=== PATIENT | male | born 1985 | race Caucasian/White ===

== ENCOUNTER 2018-01-05 13:24 | Emergency (ER) | payer BC ==
[~2018-01-05] VITALS: Ht 185.4 cm; Wt 125.5 kg
[~2018-01-05 13:24] MED LIST: FLEXERIL 1010 MG/TAB PO; FLEXERIL10 MG PO; LEVAQUIN 5500 MG/TA1 PO; LIPITOR20 MG PO; LORTAB 5/500 501 TAB PO; MOTRIN 200200 MG/TAB PO; MOTRIN 800800 MG/TAB PO; NO HOME MEDICATIONS; NORCO 325 MG-51 TAB PO; PERCOCET 5/321 UDTAB PO; PHENERGAN 25 TA25 MG PO; PLAVIX 75MG TAB75 MG PO; PREDNISONE 20MG20 MG PEG; PREDNISONE20 MG PO; TAMIFLU 75MG75 MG PO
[2018-01-05 13:26] VITALS: TEMP 99.6
[2018-01-05 13:49] LABS: HEMATOCRIT 48.1 % (42.0-52.0); HEMOGLOBIN 16.8 g/dl (13.5-18.0); MEAN CELL VOLUME 84 fl (80.0-100.0); MEAN CORPUSCULAR HEMOGLOBIN 29 pg (27.0-31.0); MEAN CORPUSCULAR HGB CONC 35 g/dl (33.0-37.0); MEAN PLATELET VOLUME 9.9 fl (7.4-10.4); PLATELET COUNT 200 K/mm3 (130-400); RED BLOOD COUNT 5.71 M/mm3 (4.20-5.60); REDCELL DISTRIBUTION WIDTH-CV 12.2 % (11.5-14.5)
[2018-01-05 13:59] LABS: ALBUMIN 4.3 gm/dL (3.5-5.0); BILIRUBIN,TOTAL 0.7 mg/dL (0.0-1.0); C-REACTIVE PROTEIN 0.9 mg/dL (0.0-0.9); CALCIUM 9.1 mg/dL (8.4-10.2); CREATININE, serum 0.91 mg/dL (0.66-1.25); POTASSIUM 4.6 mmol/L (3.4-5.0); TOTAL PROTEIN 7.5 gm/dL (6.4-8.2)
[2018-01-05 14:16] LABS: BAND 4 % (0-10); LYMPHOCYTE 7 % (20.0-51.0); NEUTROPHILS 88 % (42.0-75.2); NUCLEATED RED BLOOD CELL 1 (0-6); PLATELET ESTIMATE NORMAL (NORMAL)
[2018-01-05] MEDS ORDERED: ZOFRAN ODT4 MG PO (14:37)
[2018-01-05 15:19] LABS: COLLECTION METHOD CLEAN CATCH
[2018-01-05 15:25] VITALS: BP 119/83; PULSE 82
[2018-01-05 15:25] LABS: MUCOUS Present /lpf; PH 6 (5-8); SQUAMOUS EPITHELIAL None Seen /hpf; URINE APPEARANCE Clear; URINE BACTERIA None Seen /hpf; URINE BILIRUBIN Negative (NEGATIVE); URINE BLOOD Negative (NEGATIVE); URINE COLOR Yellow; URINE GLUCOSE Negative (NEGATIVE); URINE KETONE Negative (NEGATIVE); URINE LEUKOCYTE ESTERASE Negative (NEGATIVE); URINE NITRATE Negative (NEGATIVE); URINE PROTEIN(semi-quant) Negative (NEGATIVE); URINE RBC 0-2 /hpf; URINE UROBILINOGEN Negative (NEGATIVE)
== END 2018-01-05 15:32 | disposition home or self-care (01) ==
LOC: COL.ER 13:24
PROVIDERS: Family Medicine
DX: K52.9 Noninfective gastroenteritis and colitis, unspecified (principal); E86.9 Volume depletion, unspecified; F17.290 Nicotine dependence, other tobacco product, uncomplicated
CPT/HCPCS: C9113; J2405; J7030; J7120

== ENCOUNTER 2019-01-13 21:50 | Emergency (ER) | payer SELFPAY ==
[~2019-01-13] VITALS: Ht 188 cm; Wt 118.2 kg
[~2019-01-13 21:50] MED LIST changes: +ZOFRAN ODT4 MG PO
[2019-01-13 21:56] VITALS: TEMP 98.1
[2019-01-13 22:24] LABS: BASO % 0.3 % (0.0-2.0); EOS % 0.3 % (0-4.0); GRAN # 8.5 (1.4-6.5); GRAN % 71.6 % (42.2-75.2); HEMATOCRIT 45.7 % (42.0-52.0); HEMOGLOBIN 15.6 g/dl (13.5-18.0); LYMPH # 2.3 (1.2-3.4); LYMPH % 19.5 % (20.0-51.0); MEAN CELL VOLUME 86 fl (80.0-100.0); MEAN CORPUSCULAR HEMOGLOBIN 29 pg (27.0-31.0); MEAN CORPUSCULAR HGB CONC 34 g/dl (33.0-37.0); MEAN PLATELET VOLUME 9.7 fl (7.4-10.4); MONO % 8.1 % (1.7-9.3); PLATELET COUNT 221 K/mm3 (130-400); RED BLOOD COUNT 5.32 M/mm3 (4.20-5.60); REDCELL DISTRIBUTION WIDTH-CV 12.2 % (11.5-14.5)
[2019-01-13 22:38] LABS: ALANINE AMINOTRANSFERASE 24 U/L (21-72); ALBUMIN 4.3 gm/dL (3.5-5.0); ALKALINE PHOSPHATASE 99 U/L (50-136); ANION GAP 11 mmol/L (7-16); AST,SGOT 17 U/L (15-37); BILIRUBIN,TOTAL 1.6 mg/dL (0.0-1.0); BLOOD UREA NITROGEN 10 mg/dL (9-20); C-REACTIVE PROTEIN 6.5 mg/dL (0.0-0.9); CALCIUM 9.5 mg/dL (8.4-10.2); CARBON DIOXIDE 26 mmol/L (22-30); CHLORIDE 102 mmol/L (98-107); CREATININE, serum 0.85 (0.66-1.25); GLUCOSE 96 mg/dL (74-106); LIPASE 26 U/L (23-300); POTASSIUM 4.2 mmol/L (3.4-5.0); SODIUM 140 mmol/L (137-145); TOTAL PROTEIN 7.5 gm/dL (6.4-8.2)
[2019-01-13 22:59] LABS: TROPONIN-I < 0.012 ng/mL (0.000-0.035)
[2019-01-14] MEDS ORDERED: NORCO 325 MG-51 TAB PO (01:37)
[2019-01-14] MEDS ORDERED: LEVAQUIN 750MG750 M1 PO (01:37)
[2019-01-14 01:58] VITALS: BP 125/74; PULSE 102
== END 2019-01-14 02:14 | disposition home or self-care (01) ==
LOC: COL.ER 21:50
PROVIDERS: Emergency Medicine
DX: J18.9 Pneumonia, unspecified organism (principal); R09.1 Pleurisy; F17.210 Nicotine dependence, cigarettes, uncomplicated; F12.90 Cannabis use, unspecified, uncomplicated; Z79.02 Long term (current) use of antithrombotics/antiplatelets; Z86.73 Personal history of transient ischemic attack (TIA), and cerebral infarction without residual deficits
CPT/HCPCS: J1100; J7030; Q9967

== ENCOUNTER 2019-01-18 23:08 | Emergency (ER) | payer SELFPAY ==
[~2019-01-18] VITALS: Ht 185.4 cm; Wt 118.2 kg
[~2019-01-18 23:08] MED LIST changes: +LEVAQUIN 750MG750 M1 PO
[2019-01-19 00:42] LABS: BASO # 0.1 (0.0-0.2); BASO % 0.4 % (0.0-2.0); EOS # 0.2 (0.0-0.7); EOS % 1.9 % (0-4.0); GRAN # 7.7 (1.4-6.5); GRAN % 62.4 % (42.2-75.2); HEMATOCRIT 47.3 % (42.0-52.0); LYMPH # 3.3 (1.2-3.4); LYMPH % 26.4 % (20.0-51.0); MEAN CELL VOLUME 87 fl (80.0-100.0); MEAN CORPUSCULAR HEMOGLOBIN 29 pg (27.0-31.0); MEAN CORPUSCULAR HGB CONC 34 g/dl (33.0-37.0); MEAN PLATELET VOLUME 9.8 fl (7.4-10.4); MONO % 8.5 % (1.7-9.3); PLATELET COUNT 246 K/mm3 (130-400); RED BLOOD COUNT 5.46 M/mm3 (4.20-5.60)
[2019-01-19 00:47] LABS: ALANINE AMINOTRANSFERASE 54 U/L (21-72); ALBUMIN 4.3 gm/dL (3.5-5.0); ALKALINE PHOSPHATASE 112 U/L (50-136); ANION GAP 13 mmol/L (7-16); AST,SGOT 33 U/L (15-37); BILIRUBIN,TOTAL 0.7 mg/dL (0.0-1.0); BLOOD UREA NITROGEN 18 mg/dL (9-20); CALCIUM 9.2 mg/dL (8.4-10.2); CARBON DIOXIDE 25 mmol/L (22-30); CHLORIDE 102 mmol/L (98-107); GLUCOSE 102 mg/dL (74-106); POTASSIUM 4.1 mmol/L (3.4-5.0); SODIUM 139 mmol/L (137-145); TOTAL PROTEIN 7.7 gm/dL (6.4-8.2)
[2019-01-19 00:49] LABS: INR 1.1 (0.8-3.0); PROTHROMBIN TIME 13.4 SECONDS (9.7-12.8)
[2019-01-19 00:52] LABS: PARTIAL THROMBOPLASTIN TIME 32.6 SECONDS (26.0-37.0)
[2019-01-19 00:55] LABS: TROPONIN-I < 0.012 ng/mL (0.000-0.035)
[2019-01-19] MEDS ORDERED: NORCO 325 MG-51 TAB PO (03:15)
[2019-01-19 04:28] VITALS: TEMP 98.3
[2019-01-19 05:59] VITALS: BP 104/74; PULSE 89
== END 2019-01-19 06:40 | disposition short-term general hospital (02) ==
LOC: COL.ER 23:08
PROVIDERS: Emergency Medicine
DX: R07.89 Other chest pain (principal); Z86.73 Personal history of transient ischemic attack (TIA), and cerebral infarction without residual deficits
CPT/HCPCS: J0692; J1170; J2405; J3370; J7030; J7050; Q9967